=== PATIENT | female | born 1935 | race Caucasian/White ===

== ENCOUNTER 2016-10-15 18:12 | Emergency (ER) | payer MEDICARE ==
[2016-10-15 18:44] VITALS: BP 151/90
--- NOTE | 2016-10-15 19:44 | UC ---
Respiratory Complaint HPI - HPI Summary HPI Summary: Long history of dementia, with several day history of change in behavior, with decreased appetite, more shuffling gait, and onset of cough today. No fever, vomiting, diarrhea. Was assessed by Dr. Cade last week, is pending cataract surgery in 2 weeks. Has not had falls. Increased pedal edema observed here. Family concerned about UTI - History of Current Complaint Chief Complaint: UCGeneralIllness Stated Complaint: LETHARGIC /COUGH Time Seen by Provider: 10/15/16 18:48 Hx Obtained From: Family/Glove Wrapper - here with both daughters. Hx From Patient Unobtainable Due To: Dementia Onset/Duration: Gradual Onset, Lasting Days - 2? Timing: Constant Severity Initially: Mild Severity Currently: Mild Character: Cough: Nonproductive Alleviating Factors: Nothing - Risk Factors Pulmonary Embolism Risk Factors: Negative Cardiac Risk Factors: Hypertension - Allergies/Home Medications Allergies/Adverse Reactions: Allergies Allergy/AdvReac Type Severity Reaction Status Date / Time No Known Allergies Allergy Verified 10/15/16 18:30 Home Medications: Home Medications Acetaminophen [Tylenol] 325 mg PO Q4HR PRN 10/15/16 [History Confirmed 10/15/16] Doxycycline TAB(NF) [Doxycycline (NF)] 50 mg PO 10/15/16 [History] Melatonin 10 mg PO DAILY 10/15/16 [History Confirmed 10/15/16] Memantine XR * [Namenda XR *] 1 cap PO DAILY 10/15/16 [History Confirmed ] Quetiapine Fumarate [Seroquel] 25 mg PO BID 10/15/16 [History Confirmed 10/15/16 ] Ranitidine HCl 150 mg PO BID 10/15/16 [History Confirmed 10/15/16] PMH/Surg Hx/FS Hx/Imm Hx Previously Healthy: No GI/ History Of: Reports: Urosepsis Neurological History Of: Reports: Dementia - Surgical History Surgical History: Yes Surgery Procedure, Year, and Place: 09/2015 left hip fracture, [facility] - Family History Known Family History: Positive: Hypertension - Social History Lives: Assisted Living Alcohol Use: None Substance Use Type: None Smoking Status (MU): Never Smoked Tobacco Review of Systems Constitutional: Fatigue Respiratory: Cough Genitourinary: Other - has been on doxy for suppression of UTI's for 2 months, although has not had a documented UTI since Jun 2016 visit. Neurological: Weakness - some decreased in activity, although ambulated into department with aide of a walker., Other - increased agitation as a complication of her dementia, was started on quetiapine within the past several months. All Other Systems Reviewed And Are Negative: Yes Physical Exam Triage Information Reviewed: Yes Appearance: No Pain Distress, Other: - looks chronically well, but does have occasional meaningful verbal response. Alert, afebrile. Vital Signs: Initial Vital Signs Temp 98.8 F 10/15/16 18:39 Pulse 97 10/15/16 18:39 Resp 22 10/15/16 18:39 BP 151/90 10/15/16 18:39 Pulse Ox 100 10/15/16 18:39 Vital Signs Reviewed: Yes Eyes: Positive: Conjunctiva Clear, Other: - DANA ENT: Positive: Pharynx normal Neck: Positive: Supple Respiratory: Positive: Lungs clear, Normal breath sounds Cardiovascular: Positive: RRR, No Murmur, Other: - 1+ pitting edema Abdomen Description: Positive: Nontender, No Organomegaly, Soft Bowel Sounds: Positive: Present Neurological: Positive: Alert, Muscle Tone Normal Psychological: Positive: Other: - disoriented to time and place, little verbal response, but does not look septic. Mildly resistant to exam. Skin Exam: Normal UC Diagnostic Evaluation - Laboratory O2 Sat by Pulse Oximetry: 100 Respiratory Course/Dx - Course Course Of Treatment: no treatment suggested, but will initiate work up of change of status with labs. Given chronic suppressive antibiotic, value of catheter specimen is minimal. - Differential Dx/Diagnosis Differential Diagnosis/HQI/PQRI: CHF, Lower Resp Infection Provider Diagnoses: dementia with change in status Discharge - Discharge Plan Condition: Stable Disposition: HOME Patient Education Materials: Leg Edema (ED) Additional Instructions: Given the stable vital signs, suspicion of pneumonia is relatively low. Labs have been ordered to initiate the evaluation of this change, and will be available tomorrow afternoon. Please request that Dr. Cade gets a copy of the results. The lab work will check for congestive heart failure as a cause of leg swelling , and will also check a blood count, chemistries, and kidney function.
[2016-10-16 10:43] LABS: Hematocrit 38 % (35-47); Hemoglobin 12.8 g/dl (12.0-16.0); Mean Corpuscular HGB Conc 34 g/dl (31-36); Mean Corpuscular Hemoglobin 33 pg (27-31); Mean Corpuscular Volume 98 fL (80-97); Mean Platelet Volume 8 um3 (7.4-10.4); Red Blood Count 3.88 10^6/ul (4.0-5.4); Red Cell Distribution Width 14 % (10.5-15); White Blood Count 7.4 10^3/ul (3.5-10.8)
[2016-10-16 10:44] LABS: Albumin 3.6 g/dL (3.2-5.2); BUN/Creatinine Ratio 20.4 (8-20); C Reactive Protein 11.25 mg/L (< 5.00); EGFR African American 69.7 (>60); EGFR Non-African American 54.2 (>60); Globulin 3.1 g/dL (2-4); Potassium 3.8 mmol/L (3.5-5.0); Total Bilirubin 0.5 mg/dL (0.2-1.0); Total Protein 6.7 g/dL (6.4-8.9)
[2016-10-16 10:49] LABS: Add Diff/Slide Review? Slide Review Added; Comments Flag Yes
== END 2016-10-15 20:12 | disposition home or self-care (01) ==
LOC: UCCORT 18:12
DX: F03.90 Unspecified dementia, unspecified severity, without behavioral disturbance, psychotic disturbance, mood disturbance, and anxiety (principal)
CPT/HCPCS: 36415; 80053; 83880; 85025; 86140; 99212; G0463